=== PATIENT | male | born 1970 | race Caucasian/White ===

== ENCOUNTER → 2018-10-01 13:18 | Outpatient (CLI) | payer MEDICARE | END | disposition home or self-care (01) | LOC: D.LABREF 13:18 | PROVIDERS: ATTEND Surgery | DX: L91.8 Other hypertrophic disorders of the skin (principal) ==

== ENCOUNTER → 2019-10-06 10:24 | Outpatient (CLI) | payer MEDICARE, OTHER | END | disposition home or self-care (01) | LOC: D.US 10:24 | PROVIDERS: ATTEND Nurse Practitioner | DX: E78.5 Hyperlipidemia, unspecified (principal) ==